=== PATIENT | female | born 1985 | race Caucasian/White ===

== ENCOUNTER 2017-05-03 22:24 | Emergency (ER) | payer OTHER ==
[2017-05-03 22:29] VITALS: BP 133/92; BMI 24.7
--- NOTE | 2017-05-03 23:44 | DR.HEADACH ---
HPI - Time Seen Time seen: 11:35 - Primary Care Physician Primary Care Physician: violet crane - Complaint/Symptoms Chief Complaint Doctors Comments: Headache Chief Complaint:: "i think i am having a migraine, my head is about to blow off but i have never had a migraine before.". nausea denies vomiting. sensitivity to light and sound Pertinent History: denies: Nausea/Vomitting (nausea but no vomiting) Self Treatment fo Chief Complaint: ibuprofen. norco 10mg - Source History Provided: Patient - Mode of Arrival Mode of Arrival: Ambulatory - Timing Onset of Chief Complaint: 05/03/17 - Location Headache Location: Temporal - Severity Headache Severity: Worst Headache of Life PMH - PMH Past Medical History: Yes Past Medical History Comment: endometreosis Past Surgical History: Yes Surgical History: Appendectomy, Cholecystectomy, [employer] Surgery - Family History History of Family Medical Conditions: Yes Family Medical History: Diabetes Mellitus, Cancer - Social History Does patient currently use any type of tobacco product: No Have you used tobacco products in the last 12 months: No Type of Tobacco Use: None Does any household member use tobacco: No Alcohol Use: None Do you use any recreational Drugs:: No Lives With: Spouse Lives Where: Home - infectious screening Have you traveled outside the country in the last 6 months?: No Isolation: Standard ROS - Review of Systems Constitutional: Irritable Eyes: Photophobia ENTM: No Symptoms Reported Respiratoy: No Symptoms Reported Cardiovascular: No Symptoms Reported Gastrointestinal/Abdominal: No Symptoms Reported Genitourinary: No Symptoms Reported Neurological: Headache Musculoskeletal: No Symptoms Reported Integumentary: No Symptoms Reported Hematologic/Lymphatic: No Symptoms Reported Endocrine: No Symptoms Reported Psychiatric: No Symptoms Reported All Other Systems: Reviewed and Negative PE - Vital Signs Vitals: Temperature 98.1 F Pulse Rate 87 Respiratory Rate 16 Blood Pressure 133/92 O2 Sat by Pulse Oximetry 98 - General Limitations: No Limitations General Appearance: Alert, In No Apparent Distress - Head Head Exam: Normal Inspection - Eyes Eye exam: Normal Appearance, PERRL, EOMI Pupils: Regular, Round: Bilateral, Size: Bilateral (6mm) Sclera/Conjunctival: Normal Inspection: Bilateral - ENT ENT Exam: Normal Exam, Mucous Membranes Moist, TM's Normal Bilaterally External Ear Exam: Normal External Inspection Nose Exam: Normal Nose Exam Mouth Exam: Normal Inspection Teeth Exam: Normal Inspection Throat Exam: Normal Inspection - Neck Neck Exam: Normal Inspection, Full ROM, Trachea Midline - Chest Chest Inspection: Normal Inspection - Respiratory Respiratory Exam: Normal Lung Sounds Bilat Respiratory Exam: Bilateral Clear to Auscultation - Cardiovascular Cardiovascular Exam: Normal Rhythm, Normal Heart Sounds - Abdominal Exam Abdominal Exam: Normal Inspection - Extremities Extremities Exam: Normal Inspection, Full ROM - Back Back Exam: Normal Inspection, Full ROM - Neurologic Neurological Exam: Alert, Oriented X3, CN II-XII Intact, Normal Gait - Psychiatric Psychiatric Exam: Normal Affect, Normal Mood - Skin Skin Exam: Warm, Dry, Intact, Normal Color - Diagnosis Discharge Problem: Headache - Discharge Plan Disposition: HOME, SELF-CARE Condition: Stable - Follow ups/Referrals Follow ups/Referrals: N[facility],None [Primary Care Provider] - 3 days - Instructions Instructions: Migraine Headache, [id number]
[2017-05-03] MEDS ORDERED: TORADOL 60 MG VIAL IVP ONE (23:49)
[2017-05-03] MEDS ORDERED: PHENERGAN INJ 25 MG IVP ONE (23:52)
[2017-05-03] MEDS ORDERED: DECADRON INJ IM ONE (23:53)
[2017-05-03] MEDS ORDERED: TORADOL 30 MG VIAL ONE (23:56)
[2017-05-03] MEDS ORDERED: PHENERGAN INJ 25 MG ONE (23:57)
[2017-05-03] MEDS ORDERED: NS 25 ML IV 25 ML IV ONE (23:57)
[2017-05-03] MEDS ORDERED: DECADRON INJ ONE (23:57)
--- NOTE | 2017-05-04 01:22 | CT ---
CT head without contrast Indication: Migraine. Technique: Axial images from the skullbase to the vertex without contrast. Coronal and sagittal refo rmats provided. Comparison: None available. Findings: Bone windows shows no osseous abnormality. Paranasal sinuses and mastoid air cells are aurelio ar. There is no acute intracranial hemorrhage, mass or mass effect. No extra-axial fluid collection or abnormal area of hypoattenuation to suggest infarction seen. Ventricles and sulci are normal. Impression: No acute intracranial abnormality. Reported By:
== END 2017-05-04 01:31 | disposition home or self-care (01) ==
LOC: ER 22:35
DX: R51 Headache (principal)
CPT/HCPCS: 70450; 96365; 96372; 96374; 96375; 99282; 99283; A4222; J1100; J1885; J2550